=== PATIENT | female | born 1975 | race Hispanic/Latino ===

== ENCOUNTER 2018-09-11 12:03 | Emergency (ER) | payer SELFPAY ==
[~2018-09-11] VITALS: Ht 160 cm; Wt 58.5 kg
--- NOTE | 2018-09-11 12:30 | NUR ---
PT STATED IN TRIAGE SHE HAS HAD SUICIDAL IDEATIONS WITH NO PLAN, PT MOVED TO ROOM 3 FOR 1:1 CARE. PTS ROOM CLEARED, PT GOWNED AND PTS BELONGINGS SENT TO CAR WITH FAMILY MEMBER. PT DOES NOT APPEAR TO BE A THREAT TO HERSELF OR OTHERS AT THIS TIME. NO DISTRESS NOTED. PT IS COOPERATIVE, HER AFFECT IS FLAT AND SHE IS QUIET.
[2018-09-11 13:28] LABS: ACETAMINOPHEN < 3 ug/mL (10-30); SALICYLATE < 5.0 mg/dL (0-30)
--- NOTE | 2018-09-11 13:30 | NUR ---
PT RESTING WITH FAMILY MEMBER AT BEDSIDE. PT VOICES NO COMPLAINTS AT THIS TIME.
[2018-09-11 13:45] LABS: THYROID STIMULATING HORMONE 0.768 uIU/mL (0.350-4.940)
--- NOTE | 2018-09-11 14:11 | NUR ---
MAT TEAM CALLED FOR EVALUATION OF PT. NO ETA GIVEN
--- NOTE | 2018-09-11 14:19 | NUR ---
JOHN FROM MAT TEAM CALLED WITH 60MIN ETA.
--- NOTE | 2018-09-11 14:22 | NUR ---
PT EATING LUNCH, VISITING WITH FAMILY MEMBER, PT AND FAMILY AWARE OF POC
[2018-09-11] MEDS ORDERED: ACETAMINOPHEN 325 MG TAB PO ONE (14:45)
--- NOTE | 2018-09-11 15:14 | NUR ---
JOHN FROM MAT TEAM AT BEDSIDE WITH PATIENT.
[2018-09-11 16:00] VITALS: BP 141/78
--- NOTE | 2018-09-11 16:11 | NUR ---
PER MAT TEAM PT TO BE DISCHARGED HOME WITH RESOURCES.
== END 2018-09-11 16:11 | disposition home or self-care (01) ==
LOC: FSED 12:03
DX: F33.1 Major depressive disorder, recurrent, moderate (principal); F41.1 Generalized anxiety disorder
CPT/HCPCS: 36415; 80053; 80307; 80320; 80329; 81003; 81025; 82553; 84443; 84484; 85025; 93005; 99284